=== PATIENT | male | born 1945 | race Caucasian/White ===

== ENCOUNTER 2017-01-09 22:11 | Emergency (ER) | payer MEDICARE, OTHER ==
[2017-01-09 22:38] LABS: BASOPHIL 0.1 % (0-2); EOSINOPHIL 0 % (0-7); HCT 39.2 % (42.0-52.0); HGB 13.3 g/dl (13.2-18.0); LYMPHOCYTE 5.7 % (15-48); MCH 28.2 pg (25.0-31.0); MCHC 33.9 g/dL (32.0-36.0); MCV 83.2 fL (78.0-100.0); MONOCYTE 9.4 % (0-12); MPV 12.1 fL (6.0-9.5); NEUTROPHIL 84.8 % (41-80); PLT 98 K/uL (150-400); RBC 4.71 M/uL (4.70-6.00); RDW 15.1 % (11.5-14.0); WBC 10.2 K/uL (4.0-10.5)
[2017-01-09 22:52] LABS: CREATININE 1.1 mg/dL (0.7-1.2); POTASSIUM 3.9 mmol/L (3.5-5.1)
== END 2017-01-10 12:30 | disposition home or self-care (01) ==
LOC: FER 22:11
PROVIDERS: Emergency Medicine
DX: J18.9 Pneumonia, unspecified organism (principal); I25.810 Atherosclerosis of coronary artery bypass graft(s) without angina pectoris; Z91.09 Other allergy status, other than to drugs and biological substances; Z95.1 Presence of aortocoronary bypass graft
CPT/HCPCS: 36415; 71020; 80048; 82550; 82553; 83880; 84484; 85025; 87040; 87804; 87899; 93005; J1956

== ENCOUNTER 2017-03-14 10:48 | Emergency (ER) | payer MEDICARE, OTHER | END 2017-03-14 12:45 | disposition home or self-care (01) | LOC: FER 10:48 | DX: I11.0 Hypertensive heart disease with heart failure (principal); I50.9 Heart failure, unspecified; E11.9 Type 2 diabetes mellitus without complications; J44.9 Chronic obstructive pulmonary disease, unspecified; Z87.19 Personal history of other diseases of the digestive system; Z95.1 Presence of aortocoronary bypass graft; Z79.51 Long term (current) use of inhaled steroids; Z79.899 Other long term (current) drug therapy | CPT/HCPCS: 99283 ==

== ENCOUNTER 2017-06-28 14:01 | Emergency (ER) | payer MEDICARE, OTHER ==
[2017-06-28 14:57] LABS: BASOPHIL 0.2 % (0-2); EOSINOPHIL 0.5 % (0-7); HCT 42.3 % (42.0-52.0); HGB 14.4 g/dl (13.2-18.0); LYMPHOCYTE 14.9 % (15-48); MCH 27.3 pg (25.0-31.0); MCV 80.3 fL (78.0-100.0); MONOCYTE 7.3 % (0-12); MPV 12.6 fL (6.0-9.5); NEUTROPHIL 77.1 % (41-80); PLT 108 K/uL (150-400); RBC 5.27 M/uL (4.70-6.00); RDW 14.9 % (11.5-14.0); WBC 6.2 K/uL (4.0-10.5)
[2017-06-28 15:14] LABS: INR 1.2 (0.9-1.2); PROTHROMBIN TIME 14.3 SECONDS (11.4-13.2); PTT 25.5 SECONDS (24.3-32.1)
[2017-06-28 15:17] LABS: CREATININE 1.1 mg/dL (0.7-1.2); POTASSIUM 3.7 mmol/L (3.5-5.1)
[2017-06-28 15:27] LABS: CKMB 1.69 ng/mL (0.97-4.94); TROPONIN T < 0.010 ng/mL
== END 2017-06-28 15:50 | disposition home or self-care (01) ==
LOC: FER 14:01
PROVIDERS: Emergency Medicine
DX: I48.91 Unspecified atrial fibrillation (principal); I45.10 Unspecified right bundle-branch block; I10 Essential (primary) hypertension; I25.10 Atherosclerotic heart disease of native coronary artery without angina pectoris; Z95.5 Presence of coronary angioplasty implant and graft; Z91.14 Patient's other noncompliance with medication regimen; Z79.02 Long term (current) use of antithrombotics/antiplatelets; Z79.899 Other long term (current) drug therapy
CPT/HCPCS: 36415; 71010; 80048; 82550; 82553; 84484; 85025; 85610; 85730; 93005